=== PATIENT | female | born 2005 | race Two or more races ===

== ENCOUNTER 2023-02-02 13:53 | Emergency (ER) | payer MEDICAID, OTHER ==
[~2023-02-02] VITALS: Ht 149.9 cm; Wt 40.9 kg
[2023-02-02 15:37] LABS: Basophils # (auto) 0 10 ^3/uL (0-0.2); Basophils % (auto) 0.2 % (0.0-2.0); Eosinophils # (auto) 0.1 10 ^3/uL (0-0.8); Eosinophils % (auto) 1.4 % (0.0-7.0); Hematocrit 33.6 % (36.0-46.0); Hemoglobin 11.6 g/dL (12.2-16.2); Lymphocytes # (auto) 1.4 10 ^3/uL (0.4-5.4); Lymphocytes % (auto) 16.2 % (10.0-50.0); Mean Corpuscular Hgb Conc. 34.4 g/dL (32.0-36.0); Mean Corpuscular Volume 84.2 fL (80.0-100.0); Monocytes # (auto) 0.5 10 ^3/uL (0-1.3); Monocytes % (auto) 5.5 % (0.0-12.0); Neutrophils # (auto) 6.5 10 ^3/uL (1.6-8.6); Neutrophils % (auto) 76.7 % (37.0-80.0); Nucleated Red Blood Cells % 0.2 %; Red Blood Cells 3.99 10^6/uL (4.0-5.20); Red Cell Distribution Width 12.6 % (11.8-14.3); White Blood Cell 8.4 10^3/uL (4.4-10.8)
[2023-02-02 15:51] LABS: Alkaline Phosphatase 41 U/L (46-116); Calcium 7.9 mg/dL (8.5-10.1); Carbon Dioxide 23 mmol/L (20-30); Chloride 105 mmol/L (98-107); Glucose 72 mg/dL (74-106)
[2023-02-02 15:52] LABS: Albumin 3.6 g/dL (3.2-4.8); Anion Gap 8 (5-15); Aspartate Aminotransferase 10 U/L (13-40); BUN/Creatinine Ratio 15.2 (10.0-20.0); Bilirubin, Total 0.4 mg/dL (0.2-1.0); Blood Urea Nitrogen 7 mg/dL (9-23); Potassium 3.6 mmol/L (3.5-5.1); Sodium 136 mmol/L (136-145); Total Protein 6.2 g/dL (5.7-8.2)
[2023-02-02 16:00] LABS: Alanine Aminotransferase < 9 U/L (7-40)
[2023-02-02 16:11] LABS: Amphetamine Screen, Urine Neg (NEGATIVE); Urine Bacteria MOD /hpf (None Seen); Urine Blood Negative /uL (Negative); Urine Budding Yeast MANY /hpf (None Seen); Urine Clarity HAZY (Clear); Urine Color Yellow (Yellow); Urine Mucus FEW (None Seen); Urine Protein, UAD TRACE (Negative); Urine Specific Gravity 1.025 (1.001-1.035); Urine WBC 3 /hpf (0 - 5); Urine pH 6.5 (5.0-8.0)
[2023-02-02 16:12] LABS: Barbiturate Scree,Urine Neg (NEGATIVE); Benzodiazephine Screen, Urine Neg (NEGATIVE); Cocaine Screen, Urine Neg (NEGATIVE); Opiate Scree,Urine Neg (NEGATIVE); Phencyclidine Screen, Urine Neg (NEGATIVE)
[2023-02-02 16:13] LABS: Cannabinoid Screen, Urine Neg (NEGATIVE)
[2023-02-02] MEDS ORDERED: CEPH500T PO (16:45)
[2023-02-02 18:38] VITALS: BP 96/41; PULSE 87; RESP 16; TEMP 98.4; O2SAT 100
== END 2023-02-02 19:46 | disposition home or self-care (01) ==
LOC: EDBD 13:53 → ER 13:53
DX: O26.891 Other specified pregnancy related conditions, first trimester (principal); R10.2 Pelvic and perineal pain; R55 Syncope and collapse; R41.82 Altered mental status, unspecified; R82.71 Bacteriuria; Z3A.12 12 weeks gestation of pregnancy; Z79.899 Other long term (current) drug therapy
CPT/HCPCS: 36415; 76801; 80053; 80307; 81001; 84702; 85025

== ENCOUNTER 2023-08-05 15:27 | Inpatient (IN) | payer MEDICAID ==
[~2023-08-05] VITALS: Ht 149.9 cm; Wt 54.4 kg
[~2023-08-05 15:27] MED LIST: CEPH500T PO
[2023-08-05 17:18] LABS: Fern Testing Negative
[2023-08-05] MEDS ORDERED: BUTORPHANOL TARTRATE 2 MG/1 ML VIAL IV PRN ×2 (17:30)
[2023-08-05] MEDS ORDERED: DERMOPLAST 60ML BOTTLE TOP PRN (17:30)
[2023-08-05 18:37] LABS: Basophils # (auto) 0 10 ^3/uL (0-0.2); Basophils % (auto) 0.2 % (0.0-2.0); Eosinophils # (auto) 0.1 10 ^3/uL (0-0.8); Eosinophils % (auto) 0.7 % (0.0-7.0); Hematocrit 29.4 % (36.0-46.0); Lymphocytes % (auto) 21.6 % (10.0-50.0); Mean Corpuscular Hemoglobin 27.1 pg (28.0-32.0); Mean Corpuscular Volume 79.8 fL (80.0-100.0); Monocytes # (auto) 0.5 10 ^3/uL (0-1.3); Monocytes % (auto) 5.7 % (0.0-12.0); Neutrophils # (auto) 6.7 10 ^3/uL (1.6-8.6); Neutrophils % (auto) 71.8 % (37.0-80.0); Red Blood Cells 3.68 10^6/uL (4.0-5.20); Red Cell Distribution Width 13.4 % (11.8-14.3); White Blood Cell 9.4 10^3/uL (4.4-10.8)
[2023-08-05 18:51] LABS: Alanine Aminotransferase 13 U/L (7-40); Alkaline Phosphatase 204 U/L (46-116); Anion Gap 7 (5-15); Aspartate Aminotransferase 20 U/L (13-40); BUN/Creatinine Ratio 11.3 (10.0-20.0); Bilirubin, Total 0.4 mg/dL (0.2-1.0); Blood Urea Nitrogen 8 mg/dL (9-23); Calcium 9.1 mg/dL (8.5-10.1); Carbon Dioxide 23 mmol/L (20-30); Chloride 108 mmol/L (98-107); Glucose 82 mg/dL (74-106); Potassium 3.6 mmol/L (3.5-5.1); Sodium 138 mmol/L (136-145)
[2023-08-05 18:54] LABS: INR 0.9 (0.9-1.15); Partial Thromboplastin Time 28.1 SEC (24.5-34.5); Prothrombin Time 9.6 sec (9.3-11.8)
[2023-08-05 19:33] LABS: Amphetamine Screen, Urine Neg (NEGATIVE); Barbiturate Scree,Urine Neg (NEGATIVE); Benzodiazephine Screen, Urine Neg (NEGATIVE)
[2023-08-05 19:34] LABS: Cannabinoid Screen, Urine Neg (NEGATIVE); Cocaine Screen, Urine Neg (NEGATIVE); Opiate Scree,Urine Neg (NEGATIVE); Phencyclidine Screen, Urine Neg (NEGATIVE)
[2023-08-05 19:50] LABS: Urine Bacteria FEW /hpf (None Seen); Urine Blood Negative /uL (Negative); Urine Clarity Clear (Clear); Urine Color Colorless (Yellow); Urine Protein, UAD Negative (Negative); Urine Specific Gravity 1.007 (1.001-1.035); Urine Urobilinogen Normal (Negative); Urine WBC <1 /hpf (0 - 5)
[2023-08-05] MEDS: miSOPROStol 50 MCG per PRE-CUT 1/2 TAB PO PRN (20:05)
[2023-08-05] MEDS ORDERED: ceFAZolin 2 GM/D5W50ml 50 ML IV ONE (22:00)
[2023-08-05] MEDS: TERBUTALINE SULFATE 1 MG/ML 1ML VIAL SC ONE (22:45)
[2023-08-06] MEDS ORDERED: ROPIVACAINE 0.5% (5MG/ML) 20ML AMPULE IJ ONE (02:00)
[2023-08-06] MEDS: NALOXONE HCL 0.4 MG/ML VIAL IV ONE (02:00)
[2023-08-06] MEDS: ePHEDrine SULFATE 50 MG/ML AMP IV ONE (02:00)
[2023-08-06] MEDS: LACTATED RINGER'S 500 ML IV ONE (02:00)
[2023-08-06] MEDS: ROPIVACAINE HCL 200 ML ONE (02:41)
[2023-08-06] MEDS: LACTATED RINGER'S 1,000 ML IV SCH (02:43)
[2023-08-06] MEDS ORDERED: ceFAZolin 1GM/50ML 50 ML IV SCH (04:00)
[2023-08-06] MEDS: DERMOPLAST 60ML BOTTLE TOP PRN (09:39)
[2023-08-06] MEDS: WITCH HAZEL-GLYCERIN PAD TOP PRN (09:39)
[2023-08-06] MEDS: LACT. RINGERS/OXYTOCIN 20UNITS 500 ML IV ONE ×2 (09:40→09:41)
[2023-08-06] MEDS: PHISODERM TOP SOLN 240ML BTL TOP PRN (09:40)
[2023-08-06] MEDS ORDERED: ACETAMINOPHEN 325 MG TAB PO PRN (09:45)
[2023-08-06] MEDS: METHYLERGONOVINE MALEATE 0.2 MG/ML AMP IM ONE (09:46)
[2023-08-06 11:00] VITALS: BP 117/77; PULSE 77; RESP 18; TEMP 98.2; O2SAT 100
[2023-08-06] MEDS: LIDOCAINE 2%HCL (LOCAL ANESTH.) INJ 20ML MDV IJ PRN (14:51)
[2023-08-06 15:25] VITALS: BP 109/57; PULSE 80; RESP 18; TEMP 98.6; O2SAT 98
[2023-08-06] MEDS: IBUPROFEN 600 MG TAB PO PRN (15:43)
[2023-08-06 19:00] VITALS: BP 109/54; PULSE 74; RESP 16; TEMP 98.7; O2SAT 98
[2023-08-06 23:11] VITALS: BP 110/58; PULSE 80; RESP 18; TEMP 98.3; O2SAT 98
[2023-08-07 02:36] VITALS: BP 112/60; PULSE 78; RESP 16; TEMP 98.2; O2SAT 98
[2023-08-07 06:47] VITALS: BP 117/58; PULSE 97; RESP 18; TEMP 98.1; O2SAT 98
[2023-08-07 09:06] LABS: RPR Non Reactive (Non Reactive)
[2023-08-07 10:07] LABS: Rubella Antibodies, IgG <0.90 index (Immune >0.99)
[2023-08-07] MEDS ORDERED: PREN-129 OR (11:06)
[2023-08-07 11:30] VITALS: BP 101/57; PULSE 90; RESP 18; TEMP 98.1; O2SAT 100
[2023-08-07] MEDS: MEASLES, MUMPS & RUBELLA VAC(MMRII) 0.5ML SC ONE (12:16)
== END 2023-08-07 12:55 | disposition home or self-care (01) | DRG 560 ==
LOC: LDRP 15:27 → UNDOADMOB 15:27 → INTOOBSV 17:15 → OBSVTOIN 17:15 → LDRP 17:15 → OBSVTOIN 17:21
PROVIDERS: ADMIT Obstetrics & Gynecology; ATTEND Obstetrics & Gynecology
PROC: 10E0XZZ Delivery of Products of Conception, External Approach (ICD-10-PCS; principal; 2023-08-06)
PROC: 3E033VJ Introduction of Other Hormone into Peripheral Vein, Percutaneous Approach (ICD-10-PCS; 2023-08-06)
PROC: 3E0DXGC Introduction of Other Therapeutic Substance into Mouth and Pharynx, External Approach (ICD-10-PCS; 2023-08-06)
PROC: 0W8NXZZ Division of Female Perineum, External Approach (ICD-10-PCS; 2023-08-06)
PROC: 0KQM0ZZ Repair Perineum Muscle, Open Approach (ICD-10-PCS; 2023-08-06)
PROC: 3E0R3BZ Introduction of Anesthetic Agent into Spinal Canal, Percutaneous Approach (ICD-10-PCS; 2023-08-06)
PROC: 00HU33Z Insertion of Infusion Device into Spinal Canal, Percutaneous Approach (ICD-10-PCS; 2023-08-06)
DX: O69.81X0 Labor and delivery complicated by cord around neck, without compression, not applicable or unspecified (principal); Z37.0 Single live birth; O41.03X0 Oligohydramnios, third trimester, not applicable or unspecified; O70.1 Second degree perineal laceration during delivery; Z3A.38 38 weeks gestation of pregnancy
CPT/HCPCS: 36415; 59025; 59409; 62282; 76818; 80053; 80307; 81001; 81002; 85025; 85610; 85730; 86592; 86703; 86762; 86803; 86850; 86900; 86901; 87340; 94760; 96360; 96361; 96365; 96366; 96372; G0378; J2590